=== PATIENT | female | born 1950 | race Hispanic/Latino ===

== ENCOUNTER → 2018-04-28 | Outpatient (CLI) | payer MEDICARE, OTHER ==
--- NOTE | 2018-04-28 18:21 | Diagnostic Imaging Report ---
KNEE RIGHT THREE VIEWS - 3 views HISTORY: Pain COMPARISON: None available. FINDINGS: Bones: No acute displaced fracture. Osseous alignment is within normal limits. Joints: The joint spaces are well-maintained. Soft tissues: The soft tissues appear unremarkable. IMPRESSION: No acute fracture or dislocation of the left knee. Signed by: Dr. Nic Prieto MD on 04/28/2018 6:17 PM
== END ==
LOC: RAD 16:55
PROVIDERS: ATTEND Family Medicine
DX: M25.561 Pain in right knee (principal)

== ENCOUNTER 2019-01-17 22:16 | Inpatient (IN) | payer MEDICARE, OTHER ==
[~2019-01-17] VITALS: Ht 149.9 cm; Wt 62.6 kg
--- OUTSIDE RECORDS SUMMARY | 2019-01-17 22:24 | XMS REPORT ---
Author Author [facility] Address Unknown Phone Unavailable Care Team Providers Care Arnp Name Role Phone BUD PORTILLO Unavailable Unavailable Problems This patient has no known problems. Allergies, Adverse Reactions, Alerts This patient has no known allergies or adverse reactions. Medications This patient has no known medications. Results Test Description Test Time Test Comments Text Results Atomic Results Result Comments KNEE RIGHT THREE VIEWS 2018-04-28 18:17:00 [place] [id number] Patient Name: SANDRA MOMIN MR #: [id number] : 1950 Age/Sex: 67/F Req #: [id number] Adm Physician: Ordered by: BANDAR VERNON, BUD Chappell MD Report #: [id number] Location: [facility] Room/Bed: Procedure: [id number] DX/KNEE RIGHT THREE VIEWS Exam Date: 04/28/18 Exam Time: 1700 REPORT STATUS: Signed KNEE RIGHT THREE VIEWS - 3 views HISTORY: Pain COMPARISON: None available. FINDINGS: Bones: No acute displaced fracture. Osseous alignment is within normal limits. Joints: The joint spaces are well-maintained. Soft tissues: The soft tissues appear unremarkable. IMPRESSION: No acute fracture or dislocation of the left knee. Signed by: Dr. Nic Angela MD on 04/28/2018 6:17 PM Dictated By: NIC ANGELA MD 16 Transcribed By: BAKARI on 04/28/181816 COPY TO: BUD PORTILLO
[2019-01-17] MEDS ORDERED: DILTIAZEM HCL VIAL 5 ML ONE (22:39)
[2019-01-17] MEDS ORDERED: DILTIAZEM HCL ONE (22:48)
[2019-01-17] MEDS ORDERED: SODIUM CHLORIDE 0.9% 100 ML 100 ML ONE (22:49)
[2019-01-17] MEDS ORDERED: HEPARIN SOD (PORCINE) 5,000 UNIT/ML VIAL ONE (22:51)
[2019-01-17] MEDS ORDERED: DEXTROSE 5% 250ML 250 ML IV ONE (22:52)
[2019-01-17] MEDS ORDERED: ASPIRIN 325 MG TAB EC PO STA (23:06)
[2019-01-17] MEDS ORDERED: HEPARIN 25,000 UNIT 1,000 UNIT in DEXTROSE 5% 250ML 250 ML IV SCH (23:15)
[2019-01-17] MEDS ORDERED: DILTIAZEM HCL 125 ML IV SCH (23:15)
[2019-01-17] MEDS ORDERED: DILTIAZEM HCL 5 MG/ML 5 ML VIAL IV ONE (23:15)
[2019-01-17] MEDS ORDERED: HEPARIN SOD (PORCINE) 5,000 UNIT/ML VIAL IV ONE (23:15)
[2019-01-18] VITALS (23 sets, daily range): BP systolic 122–177; BP diastolic 60–100
--- NOTE | 2019-01-18 00:12 | Diagnostic Imaging Report ---
EXAMINATION: CXR 2 VIEW - HOPD INDICATION: ^[id number] ^[id number] COMPARISON: None FINDINGS: PA and lateral views TUBES and LINES: None. LUNGS: Lungs are well inflated. There is no evidence of pneumonia or pulmonary edema. Surgical clips projecting over left lower lung field. PLEURA: No pleural effusion or pneumothorax. HEART AND MEDIASTINUM: The cardiomediastinal silhouette is unremarkable. BONES AND SOFT TISSUES: No acute osseous lesion. Soft tissues are unremarkable. UPPER ABDOMEN: No free air under the diaphragm. IMPRESSION: No acute thoracic abnormality. Signed by: Dr. Nic Prieto MD on 01/18/2019 12:08 AM
[2019-01-18] MEDS ORDERED: KCL 20MEQ/.9 SOD CHL 1,000 ML IV ONE (00:15)
[2019-01-18] MEDS ORDERED: DEXTROSE 50% SYRINGE 50 ML IV PRN (00:15)
[2019-01-18] MEDS ORDERED: HEPARIN 25,000U/0.45% NS 250ML 250 ML IV SCH (00:30)
--- NOTE | 2019-01-18 01:15 | NUR ---
Pt arrived to unit via stretcher with EMS to ICU room 189. Pt transferred to ICU bed with no signs of distress noted. Diane Mitchell. RN to assume care of the pt at this time.
[2019-01-18 04:53] LABS: ALANINE AMINOTRANSFERASE 18 IU/L (0-55); ALBUMIN 3.8 g/dL (3.5-5.0); ALBUMIN/GLOBULIN RATIO 1.2 (0.8-2.0); ALKALINE PHOSPHATASE 67 IU/L (40-150); ANION GAP 15.9 mmol/L (8-16); BLOOD UREA NITROGEN 11 mg/dL (7-26); BUN/CREATININE RATIO 16 (6-25); CALCIUM 9.6 mg/dL (8.4-10.2); CARBON DIOXIDE 22 mmol/L (22-29); CHLORIDE 105 mmol/L (98-107); CREATININE, SERUM 0.67 mg/dL (0.57-1.11); EST GLOMERULAR FILTRATION RATE > 60 ML/MIN (60-); GLUCOSE 255 mg/dL (74-118); POTASSIUM 3.9 mmol/L (3.5-5.1); SODIUM 139 mmol/L (136-145)
[2019-01-18 05:16] LABS: CREATINE KINASE MB 1.4 ng/mL (0-5.0)
--- NOTE | 2019-01-18 06:41 | NUR ---
Dr. Barrett notified of cardiology consult.
[2019-01-18 06:46] LABS: BASOPHILS % 0.6 % (0.0-1.0); EOSINOPHILS # (AUTO) 0.4 (0.0-0.4); EOSINOPHILS % 8.1 % (0.0-6.0); HEMOGLOBIN 12.3 g/dL (12.0-16.0); LYMPHOCYTES # (AUTO) 1.9 (1.0-3.2); LYMPHOCYTES % 34.9 % (18.0-39.1); MEAN CORPUSCULAR HEMOGLOBIN 30.2 pg (28-32); MEAN CORPUSCULAR HGB CONC 34.2 g/dL (31-35); MEAN CORPUSCULAR VOLUME 88.5 fL (81-99); MONOCYTES # (AUTO) 0.4 (0.2-0.8); MONOCYTES % 6.6 % (4.4-11.3); NEUTROPHILS # (AUTO) 2.7 (2.1-6.9); NEUTROPHILS % 49.6 % (38.7-80.0); PLATELET COUNT 239 x10e3/uL (140-360); RED BLOOD COUNT 4.07 x10e6/uL (3.6-5.1); RED CELL DISTRIBUTION WIDTH 13.1 % (11.7-14.4)
[2019-01-18] MEDS: INSULIN REGULAR, HUMAN 100 UNIT/1 ML 3ML VIAL SQ SCH ×4 (07:47→21:00)
[2019-01-18] MEDS ORDERED: DILTIAZEM HCL ER 120 MG CAP PO SCH (12:45)
[2019-01-18] MEDS: APIXABAN 5 MG TABLET PO SCH ×2 (13:45→15:54)
[2019-01-18] MEDS: DILTIAZEM HCL 180 MG CAP ER PO SCH (14:05)
[2019-01-18] MEDS ORDERED: LOSARTAN POTASSIUM 100 MG TAB PO SCH (14:15)
[2019-01-18] MEDS ORDERED: METFORMIN HCL500 MG PO (14:39)
[2019-01-18] MEDS ORDERED: ONGLIZA PO (14:39)
[2019-01-18] MEDS ORDERED: GLIPIZIDE ER5 MG PO (14:39)
[2019-01-18] MEDS ORDERED: LOSARTAN POTAS100 MG PO (14:39)
[2019-01-18] MEDS: GLIPIZIDE 5 MG TAB ER PO SCH (15:54)
[2019-01-18] MEDS: LOSARTAN POTASSIUM 100 MG TAB PO SCH (15:54)
[2019-01-18] MEDS: METFORMIN HCL 500 MG TAB PO SCH (16:08)
--- NOTE | 2019-01-18 16:47 | NUR ---
Report given to GERARDO Blair for Room 212.
--- NOTE | 2019-01-18 19:00 | NUR ---
Bedside rounds completed with morning nurse. Pt alert and orient to name. Mostly Kazakh speaking. Denies pain at this time. tele #[address] Call coy within reach. Family at bedside. Will continue to monitor.
[2019-01-19] VITALS: BP 155/67
--- NOTE | 2019-01-19 00:12 | Consultation ---
DATE OF CONSULTATION: 01/18/2019 Cardiology Consultation REQUESTING PHYSICIAN: Osei Mtz MD REASON FOR CONSULTATION: Atrial fibrillation. HISTORY OF PRESENT ILLNESS: This is a 68-year-old woman with history of hypertension, hyperlipidemia, diabetes mellitus, and breast cancer status post lumpectomy, who presents with four days of chest pain and palpitations. She describes this chest pain as tightness associated with palpitations in her throat that occur off and on. This is associated with shortness of breath and lasts seconds at a time. She denies any edema, orthopnea, PND, or lightheadedness. She presented to the ER for further evaluation and was found to be in atrial fibrillation with rapid ventricular response. She was specifically started on diltiazem drip and transferred to the ICU for further care. REVIEW OF SYSTEMS: Negative except as per HPI. PAST MEDICAL HISTORY: 1. Hypertension. 2. Diabetes mellitus. 3. Hyperlipidemia. 4. Breast cancer status post lumpectomy. 5. Hypothyroidism. PAST SURGICAL HISTORY: 1. Cholecystectomy. 2. Thyroid surgery. 3. Hysterectomy. 4. section x4. ALLERGIES: PLEASE SEE EMR. MEDICATIONS: Please see medication list. SOCIAL HISTORY: Denies tobacco, alcohol, or illicit drugs. FAMILY HISTORY: Denied. PHYSICAL EXAMINATION: VITAL SIGNS: Temperature 98 degrees, pulse 82, respiratory rate 16, blood pressure 140/74, and oxygen saturation 100% on 2 L nasal cannula. GENERAL: Elderly woman in no acute distress, awake and alert. HEENT: Normocephalic, atraumatic. Pupils are equal. No scleral icterus. NECK: Supple. No thyroid or cervical lymphadenopathy. No carotid bruits. LUNGS: Clear to auscultation bilaterally. No wheeze or crackles. CARDIOVASCULAR: Normal rate, regular rhythm. No murmur. Normal S1, S2. ABDOMEN: Soft, nontender. EXTREMITIES: No edema. NEUROLOGIC: Nonfocal exam. LABORATORY DATA: WBC 5.45, hemoglobin 12.3, hematocrit 36, platelets 239. Sodium 139, potassium 3.9, chloride 105, CO2 22, BUN 11, creatinine 0.67. Troponin 0.015. TSH 1.552. Chest x-ray, no acute thoracic abnormality. EKG, AFib with RVR, nonspecific ST and T-wave abnormalities. Telemetry, normal sinus rhythm. IMPRESSION: 1. Paroxysmal atrial fibrillation, currently sinus rhythm. 2. Hypertension. 3. Hyperlipidemia. 4. Diabetes mellitus. 5. Breast cancer status post lumpectomy. RECOMMENDATIONS: Echocardiogram was revealed. The patient has preserved LV systolic function. She is currently in normal sinus rhythm. IV diltiazem has been converted to p.o. Monitor blood pressure and heart rate response. The patient's CHADS-VASc score is 4. Anticoagulation is therefore warranted for CVA prophylaxis. This was discussed with the patient and family. We will start the patient on Eliquis and stop heparin. Resume home antihypertensive therapy and assess blood pressure response. If the patient's blood pressure is controlled and the patient remained sinus rhythm, she can be discharged home later today if 3rd troponin is negative. Given complaint of chest pain with AFib, recommend nuclear stress test. This can be done as an outpatient. This was discussed with the patient and family who are agreeable with the plan of care. MD ASHLEE Tesfaye/MODL /[id number] MTDD
[2019-01-19 04:00] VITALS: BP 135/63
--- NOTE | 2019-01-19 07:00 | NUR ---
BEDSIDE SHIFT REPORT FROM RENAL DIALYSIS RN RN. PT DENIES NEEDS AT THIS TIME.
--- NOTE | 2019-01-19 07:30 | NUR ---
OK FROM THE STANDPOINT OF CARDIOLOGY TO DISCHARGE HOME WITH NEW MEDICATIONS. FOLLOW UP IN 1 TO 2 WEEKS.
[2019-01-19 07:37] VITALS: BP 119/90
[2019-01-19] MEDS ORDERED: ELIQUIS (07:38)
[2019-01-19] MEDS ORDERED: CARDIZEM CD180 MG PO (07:38)
[2019-01-19 08:00] VITALS: BP 119/90
[2019-01-19] MEDS: GLIPIZIDE 5 MG TAB ER PO SCH (08:09)
[2019-01-19] MEDS: DILTIAZEM HCL 180 MG CAP ER PO SCH (08:09)
[2019-01-19] MEDS: APIXABAN 5 MG TABLET PO SCH (08:09)
[2019-01-19] MEDS: METFORMIN HCL 500 MG TAB PO SCH (08:09)
[2019-01-19] MEDS: LOSARTAN POTASSIUM 100 MG TAB PO SCH (08:09)
[2019-01-19] MEDS: INSULIN REGULAR, HUMAN 100 UNIT/1 ML 3ML VIAL SQ SCH (08:14)
[2019-01-19] MEDS ORDERED: LOSARTAN POTASSIUM 100 MG TAB PO SCH ×2 (09:00)
[2019-01-19] MEDS ORDERED: ONGLIZA PO SCH (09:00)
[2019-01-19] MEDS ORDERED: DILTIAZEM HCL 180 MG CAP ER PO SCH (09:00)
--- NOTE | 2019-01-21 04:39 | Discharge Summary ---
DISCHARGE DIAGNOSES: Atrial flutter, diabetes, hypothyroidism, hypertension. HISTORY OF PRESENT ILLNESS AND HOSPITAL COURSE: See hospital chart for full details. The patient is a lady, who presented chest pain and palpitations, where she is noticed to have on set of atrial flutter with RVR. She was given Cardizem back in normal sinus rhythm and so she is being [facility]. She was seen by Cardiology, placed on telemetry. She had no further episodes of atrial flutter. She has slightly elevated troponin, but echocardiogram is unremarkable. At the time of discharge, the patient is feeling great. Her blood pressure is doing very well and she is cleared by Cardiology to follow up as outpatient for an outpatient stress test in 1 to 2 weeks and she was discharged home on new medication of Cardizem and anticoagulant with Eliquis as well as continuation of her home medication. Please see hospital chart for full details. MD CHAITANYA Balderrama/RYAN /[id number]
== END 2019-01-19 08:14 | disposition home or self-care (01) | DRG 310 ==
LOC: FSED 22:16 → ERHOLD 01-18 00:13 → ICU 01-18 01:15 → MED/SURG2 01-18 17:42
PROVIDERS: ADMIT Internal Medicine; ATTEND Internal Medicine
DX: I48.92 Unspecified atrial flutter (principal); I10 Essential (primary) hypertension; E03.9 Hypothyroidism, unspecified; Z90.10 Acquired absence of unspecified breast and nipple; Z85.9 Personal history of malignant neoplasm, unspecified; I48.91 Unspecified atrial fibrillation; Z79.01 Long term (current) use of anticoagulants
CPT/HCPCS: 36415; 71046; 80048; 80053; 81003; 82550; 82553; 82948; 83735; 84439; 84443; 84484; 85025; 85610; 85730; 93306; 99284; J1644; J7070

== ENCOUNTER 2019-10-20 00:21 | Emergency (ER) | payer MEDICARE, OTHER ==
[~2019-10-20] VITALS: Ht 149.9 cm; Wt 62.6 kg
[~2019-10-20 00:21] MED LIST: CARDIZEM CD180 MG PO; ELIQUIS; GLIPIZIDE ER5 MG PO; LOSARTAN POTAS100 MG PO; METFORMIN HCL500 MG PO; ONGLIZA PO
[2019-10-20] MEDS ORDERED: ASPIRIN 81 MG CHEW TAB PO STA (00:48)
[2019-10-20] MEDS ORDERED: ASPIRIN 81 MG CHEW TAB ONE (00:56)
[2019-10-20] MEDS ORDERED: NITROGLYCERIN 2% OINT 1 GM PKT ONE (00:57)
[2019-10-20] MEDS ORDERED: NITROGLYCERIN 2% OINT 1 GM PKT TOP ONE (01:00)
--- NOTE | 2019-10-20 01:13 | Diagnostic Imaging Report ---
EXAMINATION: CXR 2 VIEW - HOPD INDICATION: Chest pain. COMPARISON: Chest radiograph 01/17/2019. FINDINGS: TUBES and LINES: None. LUNGS: Lungs are moderately inflated. There is no evidence of pneumonia or pulmonary edema. PLEURA: No pleural effusion or pneumothorax. HEART AND MEDIASTINUM: The cardiomediastinal silhouette is unremarkable. There are atherosclerotic calcifications within the aorta. BONES AND SOFT TISSUES: No acute osseous abnormality. Surgical clips project over the left lateral lower chest wall. UPPER ABDOMEN: No free air under the diaphragm. There are cholecystectomy clips. IMPRESSION: No acute thoracic abnormality. Signed by: Dr. Kole Soriano MD on 10/20/2019 1:10 AM
--- NOTE | 2019-10-20 01:30 | NUR ---
ATTEMPTED TO CALL [facility] FOR POSS ADMISSION TO [facility], THEY ARE AT CAPACITY AND SUGGESTED POSSIBLE TRANSFER TO [facility], [place], OR [facility], SPOKE WITH PATIENT AND FAMILY AND MENTIONED POSS TRANSFER ELSE WHERE INCLUDING [facility], BUT PER PATIENT SHE WOULD REALLY LIKE TO HAVE SON DRIVE HER TO THE HOSPITAL INSTEAD OF GOING BY AMBULANCE. EXPLAINED THE AMA PROCESS AND PT AND FAMILY ARE INAGREEMENT, PT AND FAMILY SPOKE WITH DR. ARVIZU AND ALTHOUGH HE WAS NOT IN AGREEMENT WITH THEM WANTING TO GO AMA, HE TOLD THEM HE WOULD UNDERSTAND IF THEY CHOSE TO LEAVE AMA. PT AND FAMILY DISCHARGED HOME WITH AMA PAPERWORK SIGNED BY DAUGHTER IN LAW (OK'D TO SIGN BY PATIENT), COPIES OF LABS, XRAY, AND EKG ALSO GIVEN TO PATIENT, IV REMOVED, PT'S BP IMPROVING, AND DENIED ANY CP OR VOICED AN OTHER COMPLAINTS.
== END 2019-10-20 01:45 | disposition left against medical advice (07) ==
LOC: FSED 00:21
DX: R07.89 Other chest pain (principal); I10 Essential (primary) hypertension; E11.9 Type 2 diabetes mellitus without complications; E78.5 Hyperlipidemia, unspecified; I48.91 Unspecified atrial fibrillation
CPT/HCPCS: 71046; 80048; 80076; 82553; 84484; 85025; 93005; 99284

== ENCOUNTER → 2021-05-11 | Day surgery (SDC) | payer MEDICARE, OTHER ==
[2021-05-08 09:22] LABS: BASOPHILS % 0.5 % (0.0-1.0); EOSINOPHILS # (AUTO) 0.8 (0.0-0.4); EOSINOPHILS % 12.6 % (0.0-6.0); HEMATOCRIT 36.4 % (34.2-44.1); LYMPHOCYTES # (AUTO) 1.8 (1.0-3.2); LYMPHOCYTES % 30.1 % (18.0-39.1); MEAN CORPUSCULAR HEMOGLOBIN 28.9 pg (28-32); MEAN CORPUSCULAR VOLUME 87.7 fL (81-99); MONOCYTES # (AUTO) 0.4 (0.2-0.8); MONOCYTES % 6.5 % (4.4-11.3); NEUTROPHILS # (AUTO) 3.1 (2.1-6.9); NEUTROPHILS % 50.1 % (38.7-80.0); PLATELET COUNT 245 x10e3/uL (140-360); RED BLOOD COUNT 4.15 x10e6/uL (3.6-5.1); RED CELL DISTRIBUTION WIDTH 13.1 % (11.7-14.4)
[~2021-05-11] MED LIST changes: +ALENDRONATE SOD70 MG PO; +LIPITOR10 MG PO; +PANTOPRAZOLE SO40 MG PO; +TRADJENTA5 MG PO; +ZETIA10 MG PO
[2021-05-11 11:32] VITALS: BP 128/62
== END | disposition home or self-care (01) ==
LOC: OR 08:32
PROVIDERS: ATTEND Internal Medicine Gastroenterology
DX: Z12.11 Encounter for screening for malignant neoplasm of colon (principal); K63.5 Polyp of colon; K64.8 Other hemorrhoids; Z71.3 Dietary counseling and surveillance; E11.9 Type 2 diabetes mellitus without complications; I10 Essential (primary) hypertension; E66.3 Overweight; I48.91 Unspecified atrial fibrillation; M06.9 Rheumatoid arthritis, unspecified; Z88.8 Allergy status to other drugs, medicaments and biological substances; Z01.812 Encounter for preprocedural laboratory examination; Z20.822 Contact with and (suspected) exposure to COVID-19; Z79.84 Long term (current) use of oral hypoglycemic drugs; Z79.02 Long term (current) use of antithrombotics/antiplatelets; Z68.27 Body mass index [BMI] 27.0-27.9, adult; Z85.3 Personal history of malignant neoplasm of breast
CPT/HCPCS: 36415 ×2; 45385; 82948; 85025; U0002; 45378